=== PATIENT | male | born 1960 | race African-American/Black ===

== ENCOUNTER 2017-06-26 21:27 | Inpatient (IN) | payer OTHER ==
[~2017-06-26] VITALS: Ht 190.5 cm; Wt 83.9 kg
--- NOTE | 2017-06-26 21:31 | ED AMS/SEIZURE/WEAK/DIZZY ---
History of Present Illness General Chief Complaint: Seizure Stated Complaint: BIBA S/P SEIZURE Source: patient, EMS, friend Exam Limitations: no limitations Vital Signs & Intake/Output Vital Signs & Intake/Output Vital Signs Date Time Temp Pulse Resp B/P B/P Pulse O2 O2 Flow FiO2 Mean Ox Delivery Rate 06/26 2312 98.0 79 18 117/69 97 Room Air 06/26 2135 99.0 104 20 118/52 95 Room Air ED Intake and Output 06/27 0000 06/26 1200 Intake Total Output Total 400 Balance -400 Output, Urine 400 Patient 190 lb Weight Weight Reported by Patient Measurement Method Allergies Coded Allergies: No Known Allergies (06/26/17) Triage Nurses Notes Reviewed? yes Onset: Abrupt Duration: minute(s):, better Timing: single episode today Injury Environment: friend's home Severity: moderate Modifying Factors: Improves With: rest. Associated Symptoms: seizure like activity per friend HPI: 56 yo gentleman h/o seizure disorder (3 prior seizures), was on a seizure medication which he is no longer taking. Per his friend, "I heard a loud crash and he was leaned over on the coffee table and seizing.... His arms and legs were shaking... it lasted maybe 5 minutes or so." Mr. David shares that he bit his tongue, did not lose bowel or bladder. He states that he does not remember the incident. Per the medics, "He seemed post-ictal at first... He was pretty sluggish at first, but woke up in the ambulance." glucose 83 in the field. He reports that he is otherwise well, denies drugs/alcohol use tonight. Past History Travel History Traveled to [place] past 21 day No Medical History Any Pertinent Medical History? see below for history Neurological: seizure Cardiovascular: "old heart attack" Surgical History Surgical History: none Family History Hx Contributory? No Review of Systems Review of Systems Constitutional: Reports: no symptoms. EENTM: Reports: no symptoms. Respiratory: Reports: no symptoms. Cardiovascular: Reports: no symptoms. GI: Reports: no symptoms. Genitourinary: Reports: no symptoms. Musculoskeletal: Reports: no symptoms. Skin: Reports: no symptoms. Neurological/Psychological: Reports: no symptoms. Hematologic/Endocrine: Reports: no symptoms. Immunologic/Allergic: Reports: no symptoms. All Other Systems: Reviewed and Negative Physical Exam Physical Exam General Appearance: well developed/nourished, mild distress Head: atraumatic, normal appearance Eyes: Bilateral: normal appearance, PERRL, EOMI, other (pinpoint pupils bilaterally). Ears, Nose, Throat: normal pharynx, hearing grossly normal, abrasion on left distal tongue, no pia laceration Neck: normal inspection, supple, full range of motion Respiratory: normal breath sounds, chest non-tender, no respiratory distress, quiet respiration, lungs clear Cardiovascular: regular rate/rhythm Gastrointestinal: normal bowel sounds, soft, non-tender, no organomegaly Back: normal inspection, normal range of motion Extremities: normal range of motion Neurologic/Psych: no motor/sensory deficits, awake, alert, oriented x 3 Skin: intact, normal color, warm/dry Core Measures ACS in differential dx? No CVA/TIA Diagnosis No Sepsis Present: No Sepsis Focused Exam Completed? No Progress Differential Diagnosis: alcohol intoxication, CVA/stroke, dehydration, electrolyte imbalance, hypoglycemia, intracranial Hem., intracranial mass/tumor Plan of Care: Orders Procedure Date/time Status Nothing by Mouth 06/27 B Active TROPONIN LEVEL 06/27 0030 Active EKG 06/27 0030 Active Saline Lock 06/26 2359 Active Misc Message 06/26 2359 Active ED Holding Orders 06/26 2359 Active Admit to inpatient 06/26 2359 Active Vital Signs 06/26 2359 Active Code Status 06/26 2359 Active EKG 06/26 2317 Active PROLACTIN 06/26 2147 Complete URINE DRUG SCREEN FOR ER ONLY 06/26 2129 Complete URINALYSIS 06/26 2129 Complete TROPONIN LEVEL 06/26 2129 Complete LIPASE 06/26 2130 Complete HEPATIC FUNCTION PANEL 06/26 2130 Complete ETHANOL 06/26 2129 Complete CBC WITHOUT DIFFERENTIAL 06/26 2129 Complete BASIC METABOLIC PANEL 06/26 213 Complete AMYLASE 06/26 2130 Complete EKG 06/26 213 Active Current Medications Sig/Kathe Start time Last Medication Dose Stop Time Status Admin Carbamazepine 200 MG BID 06/26 2347 UNVr 06/26 (Tegretol) 235 Aspirin 325 MG ONCE ONE 06/265 UNVr 06/26 (Aspirin) 06/26 2346 2356 Laboratory Tests 06/26/17 2255: Urine Opiates Screen < 100.00, Methadone Screen < 40, Barbiturate Screen < 60, Ur Phencyclidine Scrn < 6.00, Amphetamines Screen < 100, U Benzodiazepines Scrn < 85, Urine Cocaine Screen < 50, Urine Cannabis Screen < 5.00, Urine Color YEL, Urine Clarity CLEAR, Urine pH 6.5, Ur Specific [place] 1.025, Urine Protein 30 H, Urine Ketones TRACE H, Urine Nitrite NEG, Urine Bilirubin NEG, Urine Urobilinogen 0.2, Ur Leukocyte Esterase NEG, Ur Microscopic SEDIMENT EXAMINED, Urine RBC RARE, Urine WBC RARE, Ur Epithelial Cells RARE, Urine Mucus RARE, Urine Hemoglobin NEG, Urine Glucose NEG 06/26/172146: Anion Gap 19 H, Estimated GFR > 60, BUN/Creatinine Ratio 17.8, Glucose 112 H, Calcium 9.1, Total Bilirubin 0.2, Direct Bilirubin 0.1, AST 20, ALT 18 L, Alkaline Phosphatase 131 H, Troponin I < 0.01, Total Protein 7.1, Albumin 3.9, Amylase 74, Lipase 82, Prolactin 63.4 H, Serum Alcohol < 10.0 06/26/172132: Prolactin Cancelled 06/26/172113: CBC w Diff NO MAN DIFF REQ, RBC 5.46, MCV 89.6, MCH 29.0, MCHC 32.4 L, RDW 14.2 , MPV 8.2, Gran % 62.1, Lymphocytes % 27.1, Monocytes % 7.7, Eosinophils % 2.6, Basophils % 0.5, Absolute Granulocytes 5.0, Absolute Lymphocytes 2.2, Absolute Monocytes 0.6, Absolute Eosinophils 0.2, Absolute Basophils 0 Diagnostic Imaging: Viewed by Me: Radiology Read, CT Scan. Discussed w/RAD: Radiology Read, CT Scan. Radiology Impression: PATIENT: MICHEL DAVID PRESENT AGE: 56 PATIENT ACCOUNT NO: [id number] : 62 LOCATION: [facility] ORDERING PHYSICIAN: Hawk Sanches MD SERVICE DATE: 06/26/17 EXAM TYPE: CAT - CT CERV SPINE WO IV CONTRAST; CT HEAD WO IV CONTRAST EXAMINATION: CT HEAD W/O IV CONTRAST CT CERVICAL SPINE W/O IV CONTRAST CLINICAL INFORMATION: 56-year- old male with history of trauma and seizure. COMPARISON: None TECHNIQUE: Head - Contiguous axial imaging of the head was performed from the skull base to the vertex without the administration of intravenous contrast, and axial images are reconstructed at 0.625 mm, 2.5 mm and 5 mm slice thickness. Cervical spine - A volumetric, helical CT acquisition of the cervical spine was obtained without contrast; in addition to the standard set of axial images, multiplanar reformatted images were provided in the coronal and sagittal imaging planes. 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 No evidence of an acute major vascular territory infarction, hemorrhage, extra-axial fluid collection, mass or midline shift. The lateral, third and fourth ventricles are normal; no hydrocephalus. The calvarium is intact and the mastoid air cells and middle ear cavities are well aerated. Small mucous retention cyst is present within the left sphenoid sinus. The visualized orbits, globes and temporomandibular joints are unremarkable. CERVICAL SPINE: The occipital condyles, atlas, axis and atlantoaxial articulation are intact. The vertebral body heights and alignment are maintained. No acute fractures in the anterior or posterior elements. No prevertebral soft tissue swelling. Mild disc space narrowing with traction osteophyte formation at C4-C5 and C5-C6. Mild hypertrophy of the uncovertebral joints of C3-C4, C4-C5 and C5-C6. No significant narrowing of the central spinal canal or neural foramina. No evidence of epidural hematoma or focal fluid collection in the visualized neck. Thyroid gland is unremarkable. Severe bullous emphysema in the partially visualized lung apices. IMPRESSION: 1. No acute intracranial pathology. 2. 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 3. No acute fracture or malalignment within the mildly degenerated cervical spine. 4. Severe bullous emphysema in the partially visualized lung apices. DICTATED BY: Alcides Parker MD DATE/TIME DICTATED:06/26/172227 AUTO PARKER:BENITO DATE/TIME TRANSCRIBED:06/26/172227 CONFIDENTIAL, DO NOT COPY WITHOUT APPROPRIATE AUTHORIZATION. <Electronically signed in Other Vendor System> SIGNED BY: Alcides Parker MD 06/26/17 9923 Initial ED EKG: RBBB, non specific st segment changes v4, v5 Repeat EKG: unchanged Departure Departure Disposition: STILL A PATIENT Condition: Stable Clinical Impression Primary Impression: Seizure disorder Secondary Impressions: Abnormal EKG Departure Forms: Customer Survey General Discharge Information Comments 06/26/17, 23:41... discussed with dr. soto (cards) who reviewed the patient' s ekg... pt with abnormal ekg, pt is asymptomatic, no chest pain... pt merits observation, serial ekg's, trops, he will evaluate in the AM. 06/26/17, 23:48... discussed with dr. partida (neurology)... pt likely was on carbamazepine... will restart med 200mg bid. dr. partida will see pt in am. Admission Note Spoke With: Ric SY,[facility] Documentation of Exam: Documentation of any treatments & extenuating circumstances including Concerns Regarding Discharge (functional status, medication knowledge or non-compliance, living conditions, etc.) that warrant an admission rather than observation: pt with seizure, likely due to stopping his medications, also with abnormal ekg. pt merits aspirin, monitoring, tegretol... cards and neuro will eval in the morning. Critical Care Note Critical Care Note Critical Care Time: 30-74 min
[2017-06-26 21:59] LABS: ABSOLUTE BASOPHIL COUNT 0 /CUMM (0.0-0.2); ABSOLUTE EOSINOPHIL COUNT 0.2 /CUMM (0.0-0.7); ABSOLUTE LYMPH COUNT 2.2 /CUMM (1.2-3.4); ABSOLUTE MONOCYTE COUNT 0.6 /CUMM (0.10-0.60); BASOPHIL % 0.5 % (0.0-2.0); EOSINOPHIL % 2.6 % (0-5); GRANULOCYTE % 62.1 % (42.2-75.2); HEMATOCRIT 48.9 % (42-52); MEAN CORPUSCULAR HGB CONC 32.4 G/DL (33.0-37.0); MEAN CORPUSCULAR VOLUME 89.6 FL (80.0-94.0); MEAN PLATELET VOLUME 8.2 FL (7.4-10.4); PLATELET COUNT 228 /CUMM (130-400); RBC DISTRIBUTION WIDTH 14.2 % (11.5-14.5); RED BLOOD CELL CT 5.46 /CUMM (4.70-6.10); WHITE BLOOD CELL COUNT 8.1 /CUMM (4.8-10.8)
--- NOTE | 2017-06-26 22:41 | CT SCAN REPORT ---
EXAMINATION: CT HEAD W/O IV CONTRAST CT CERVICAL SPINE W/O IV CONTRAST CLINICAL INFORMATION: 56-year-old male with history of trauma and seizure. COMPARISON: None TECHNIQUE: Head - Contiguous axial imaging of the head was performed from the skull base to the vertex without the administration of intravenous contrast, and axial images are reconstructed at 0.625 mm, 2.5 mm and 5 mm slice thickness. Cervical spine - A volumetric, helical CT acquisition of the cervical spine was obtained without contrast; in addition to the standard set of axial images, multiplanar reformatted images were provided in the coronal and sagittal imaging planes. 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 No evidence of an acute major vascular territory infarction, hemorrhage, extra-axial fluid collection, mass or midline shift. The lateral, third and fourth ventricles are normal; no hydrocephalus. The calvarium is intact and the mastoid air cells and middle ear cavities are well aerated. Small mucous retention cyst is present within the left sphenoid sinus. The visualized orbits, globes and temporomandibular joints are unremarkable. CERVICAL SPINE: The occipital condyles, atlas, axis and atlantoaxial articulation are intact. The vertebral body heights and alignment are maintained. No acute fractures in the anterior or posterior elements. No prevertebral soft tissue swelling. Mild disc space narrowing with traction osteophyte formation at C4-C5 and C5-C6. Mild hypertrophy of the uncovertebral joints of C3-C4, C4-C5 and C5-C6. No significant narrowing of the central spinal canal or neural foramina. No evidence of epidural hematoma or focal fluid collection in the visualized neck. Thyroid gland is unremarkable. Severe bullous emphysema in the partially visualized lung apices. IMPRESSION: 1. No acute intracranial pathology. 2. 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 3. No acute fracture or malalignment within the mildly degenerated cervical spine. 4. Severe bullous emphysema in the partially visualized lung apices.
--- NOTE | 2017-06-26 22:49 | RADIOLOGY REPORT ---
EXAMINATION: XR PORTABLE CHEST CLINICAL INFORMATION: Dyspnea. Seizure. COMPARISON: None TECHNIQUE: Portable frontal view of the chest was obtained. FINDINGS: Severe bullous emphysema of the lung apices without pneumothorax. Mild cardiomegaly. No pulmonary edema or pleural effusion. The visualized bones are intact. IMPRESSION: 1. No pneumonia; no acute cardiopulmonary findings. 2. Severe bullous emphysema of the upper lobes. 3. Mild cardiomegaly.
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
--- NOTE | 2017-06-27 05:25 | Admission Certification ---
Admission Certification Certification Statement - As attending physician, I certify that at the time of - admission, based on clinical presentation, severity of - symptoms, need for further diagnostic testing and - therapeutic interventions, and risk of adverse outcomes - without in-hospital treatment, in my clinical assessment, - this patient requires an acute hospital stay for a minimum - of two nights or longer. I have also considered psychsocial - factors such as support system, advanced age, financial - issues, cognitive issues, and failed out-patient treatments, - past re-admission history, safety of patient, and lack of - compliance as applicable. Specific rationale supporting this admission is: Breakthrough seizures from medication noncompliance, EKG changes needs inpatient Telemetry monitoring to rule out ACS.
--- NOTE | 2017-06-27 10:15 | Event Note ---
Event Note Event Note: Patient last filled his prescriptions on 04/06/17: from [address] [place] [address], . * carvedilol 3.125 mg BID * valsartan 80 mg HS * warfarin 2.5 mg daily * carbamazepine ER 200 mg BID * ASA 81 mg daily Allergy: None noted Today's fatumaamjett: 56 yo M with pmh of ischemic cardiomyopathy/dilated cardiomyopathy with EF 10-15 % (01/2017), with left ventricular thrombus, coronary artery disease proven by cardiac catheterization showing LAD 90% stenosis of 22 mm length, large anterior IL, pulmonary hypertension, left atrial dilatation, and seizure disorder, noncompliant with medications, who lives in [place], was at his friend's home yesterday, when he sustained an unwitnessed seizure. Given his cardiac history and history of seizure disorder, difficult at this point of time to say his seizure was due to seizure disorder non compliance to meds or due to hypoxia secondary to his cardiac condition. Although his ejection fraction is extremely low, he does not appear to be in any decompensated heart failure as of now. Overnight, he did not have any changes in telemetry, did not have any further seizures, and today EEG came back negative, echocardiogram pending, will follow cardiology in neurology's suggestions which have been requested. Of note, he tried leaving AGAINST MEDICAL ADVICE, earlier coating he needs to have a cigarette while refusing any substitute, but later stated to complete the EEG and consultations. His medications have been reconciled from his [facility], [place], and if he decides to leave AGAINST MEDICAL ADVICE, prescriptions for now have been sent to [facility].
--- NOTE | 2017-06-27 12:04 | Cons- Cardiology ---
General Information and HPI Consulting Request Date of Consult: 06/27/17 Requested By: Sharonda Mills MD Reason for Consult: Cardiomyopathy, possible syncope History of Present Illness: The patient is a 56-year-old male with history of coronary artery disease, ischemic heart myopathy, left ventricular thrombus, transient episode of atrial fibrillation, and seizure disorder. He previously lived in [place], however he recently has been staying with friends in [place]. He lost his wallet and has been unable to obtain his medications for the past month. He has been off all medications including his cardiac medications and seizure medications for the past few months. He was brought in by friends after a witnessed seizure episode. The patient does not recall anything about the episode. He was feeling well, and then he awoke in the ambulance. He has no chest pain. No palpitations. No shortness of breath. No diaphoresis. No lightheadedness or dizziness. No nausea or vomiting. Allergies/Medications Allergies: Coded Allergies: No Known Allergies (06/26/17) Home Med List: Aspirin (Aspirin*) 81 MG TAB.CHEW 1 TAB PO DAILY HEART HEALTH Carbamazepine (Tegretol XR) 200 MG TAB.ER.12H 1 TAB PO BID SEIZURE Carvedilol 3.125 MG TABLET 1 TAB PO BID HTN Folic Acid 1 MG TABLET 1 MG PO DAILY SUPPLEMENT Multivitamin (One Daily Multivitamin) 1 EACH TABLET 1 TAB PO DAILY SUPPLEMENT Thiamine HCl (Vitamin B-1) 100 MG TABLET 100 MG PO DAILY SUPPLEMENT Valsartan 80 MG TABLET 1 TAB PO DAILY HTN Warfarin Sodium (Coumadin) 2.5 MG TABLET 1 TAB PO DAILY BLOOD THINNER Current Medications: Current Medications Sig/Kathe Start time Last Medication Dose Route Stop Time Status Admin Acetaminophen 650 MG Q6P PRN 06/27 0145 DCD PO Acetaminophen 1,000 MG Q6P PRN 06/27 0145 DCD IV Aspirin 81 MG DAILY 06/27 1000 DCD 06/27 PO 1040 Aspirin 0 .STK-MED ONE 06/26 2352 DC PO Aspirin 325 MG ONCE ONE 06/265 DC 06/26 PO 06/26 234 2356 Atorvastatin Calcium 40 MG 1700 06/27 1700 DCD 06/27 PO 1717 Carbamazepine 200 MG BID 06/27 1000 DCD 06/27 PO 1041 Carbamazepine 200 MG BID 06/26 2347 DC 06/26 PO 2356 Enoxaparin Sodium 40 MG DAILY 06/27 1000 DCD 06/27 SC 1040 Folic Acid 1 MG DAILY 06/27 1000 DCD 06/27 PO 1040 Ibuprofen 600 MG Q6P PRN 06/27 0145 DC PO Metoprolol Tartrate 6.25 MG BID 06/27 1000 DCD 06/27 PO 1040 Multivitamins 1 TAB DAILY 06/27 1000 DCD 06/27 PO 1041 Nicotine 7 MG Q24 PRN 06/27 0200 DCD TOP Thiamine HCl 100 MG DAILY 06/27 1000 DCD 06/27 PO 1041 Warfarin Sodium 5 MG COUMADIN 1700 ONE 06/27 1815 DC PO 06/27 1816 Review of Systems Review of Systems: No rash. No tremor. No melena. All other systems were reviewed, and were noted to be negative. 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 Home Services at Home: None Smoking Status: Current Everyday Smoker (PPD x 45 yrs ) ETOH Use: occasional use Illicit Drug Use: denies illicit drug use Functional Ability ADLs Independent: dressing, eating, toileting, bathing. Ambulation: independent IADLs Independent: shopping, housework, finances, food prep, telephone, transportation , medication admin. Exam & Diagnostic Data Vital Signs and I&O Vital Signs Date Time Temp Pulse Resp B/P B/P Pulse O2 O2 Flow FiO2 Mean Ox Delivery Rate 06/27 1555 97.8 74 20 128/85 94 Room Air 06/27 1040 66 104/70 06/27 0812 97.8 66 18 114/65 96 06/27 0724 97.9 64 18 99/64 96 Room Air 06/27 0608 97.9 57 16 104/63 96 Room Air 06/27 0431 97.4 78 18 101/56 97 Room Air 06/27 0149 97.9 75 18 105/69 96 Room Air 06/26 2312 98.0 79 18 117/69 97 Room Air 06/26 2135 99.0 104 20 118/52 95 Room Air Intake & Output 06/27 1600 06/27 0800 06/27 0000 06/26 1600 06/26 0800 06/26 0000 Intake Total 510 Output Total 400 Balance 510 -400 Intake, IV 10 Intake, Oral 500 Output, Urine 400 Patient 185 lb 190 lb Weight Weight Reported by Patient Reported by Patient Measurement Method Physical Exam: Gen: The patient is in no acute distress HEENT: Normal nose, ears, and oropharynx. Pupils equal bilaterally. Conjunctiva normal. Neck: Supple with no JVD, no masses, and no thyromegaly Lungs: Clear to auscultation with normal respiratory effort Heart: RRR, S1, S2, 1/6 systolic murmur. No peripheral edema, 2+ pulses in the lower extremities bilaterally Abdomen: Soft, nontender, no masses. No hepatomegaly. No splenomegaly Extremities: No clubbing or cyanosis. Normal muscle strength in the upper and lower extremities Skin: Normal skin turgor with no skin ulcers or lesions noted. Neuro: Cranial nerves intact. Sensation intact Psych: Alert and oriented x 3 with appropriate affect Labs/Marvin Results: Laboratory Tests 06/27 06/27 06/27 06/27 06/27 1710 1122 0917 0557 0031 Chemistry Lactic Acid (0.7 - 2.1 mmol/L) Cancelled 0.9 Troponin I (<0.11 ng/ml) 0.04 0.02 Coagulation PT (9.4 - 12.5 SEC) 13.2 H INR (0.90 - 1.17) 1.26 H 06/26 06/26 06/26 2255 2147 2133 Chemistry Sodium (137 - 145 mmol/L) 144 Potassium (3.5 - 5.1 mmol/L) 4.2 Chloride (98 - 107 mmol/L) 108 H Carbon Dioxide (22 - 30 mmol/L) 17 L Anion Gap (5 - 16) 19 H BUN (9 - 20 mg/dL) 16 Creatinine (0.7 - 1.2 mg/dL) 0.9 Estimated GFR (>60 ml/min) > 60 BUN/Creatinine Ratio (7 - 25 %) 17.8 Glucose (65 - 99 mg/dL) 112 H Lactic Acid (0.7 - 2.1 mmol/L) 7.9 H Calcium (8.4 - 10.2 mg/dL) 9.1 Total Bilirubin (0.2 - 1.3 mg/dL) 0.2 Direct Bilirubin (< 0.4 mg/dL) 0.1 AST (17 - 59 U/L) 20 ALT (21 - 72 U/L) 18 L Alkaline Phosphatase (< 127 U/L) 131 H Troponin I (<0.11 ng/ml) < 0.01 Total Protein (6.3 - 8.2 g/dL) 7.1 Albumin (3.5 - 5.0 g/dL) 3.9 Amylase (30 - 110 U/L) 74 Lipase (23 - 300 U/L) 82 Prolactin (3.7 - 17.9 ng/mL) 63.4 H Cancelled Toxicology Urine Opiates Screen (>2000 NG/ML) < 100.00 Methadone Screen (>300 NG/ML) < 40 Barbiturate Screen (>200 NG/ML) < 60 Ur Phencyclidine Scrn (>25 NG/ML) < 6.00 Amphetamines Screen (>1000 NG/ML) < 100 U Benzodiazepines Scrn (>200 NG/ML) < 85 Urine Cocaine Screen (>300 NG/ML) < 50 Urine Cannabis Screen (>50 NG/ML) < 5.00 Serum Alcohol (<10 MG/DL) < 10.0 Urines Urine Color (YEL,AMB,STR) YEL Urine Clarity (CLEAR) CLEAR Urine pH (5.0 - 8.0) 6.5 Ur Specific [place] (1.001 - 1.035) 1.025 Urine Protein (NEG,<30 MG/DL) 30 H Urine Ketones (NEG) TRACE H Urine Nitrite (NEG) NEG Urine Bilirubin (NEG) NEG Urine Urobilinogen (0.1 - 1.0 EU/dl) 0.2 Ur Leukocyte Esterase (NEG) NEG Ur Microscopic SEDIMENT EXAMINED Urine RBC (0 - 5 /HPF) RARE Urine WBC (0 - 2 /HPF) RARE Ur Epithelial Cells (NONE,FEW) RARE Urine Mucus (FEW,NONE) RARE Urine Hemoglobin (NEG) NEG Urine Glucose (N MG/DL) NEG 06/26 2113 Hematology CBC w Diff NO MAN DIFF REQ WBC (4.8 - 10.8 /CUMM) 8.1 RBC (4.70 - 6.10 /CUMM) 5.46 Hgb (14.0 - 18.0 G/DL) 15.9 Hct (42 - 52 %) 48.9 MCV (80.0 - 94.0 FL) 89.6 MCH (27.0 - 31.0 PG) 29.0 MCHC (33.0 - 37.0 G/DL) 32.4 L RDW (11.5 - 14.5 %) 14.2 Plt Count (130 - 400 /CUMM) 228 MPV (7.4 - 10.4 FL) 8.2 Gran % (42.2 - 75.2 %) 62.1 Lymphocytes % (20.5 - 51.1 %) 27.1 Monocytes % (1.7 - 9.3 %) 7.7 Eosinophils % (0 - 5 %) 2.6 Basophils % (0.0 - 2.0 %) 0.5 Absolute Granulocytes (1.4 - 6.5 /CUMM) 5.0 Absolute Lymphocytes (1.2 - 3.4 /CUMM) 2.2 Absolute Monocytes (0.10 - 0.60 /CUMM) 0.6 Absolute Eosinophils (0.0 - 0.7 /CUMM) 0.2 Absolute Basophils (0.0 - 0.2 /CUMM) 0 Diagnostic Data EKG Results EKG tracing is independently reviewed, and reveals normal sinus rhythm at 69, right bundle branch block, anterior infarct age and CXR Results Family history was reviewed with the patient Assessment/Plan Assessment/Plan The patient is a 56-year-old male with history of coronary artery disease, ischemic heart myopathy, LVEF 10-15%, left ventricular thrombus, prior history of atrial fibrillation, and seizure disorder. He is admitted after an apparent seizure, and he is found to have been off of his medications. I recommended further monitoring in the hospital because of concern that the presenting episode could have been syncope secondary to cardiac disease. I recommended an echocardiogram, reinitiation of cardiac medications, and close follow-up. The patient unfortunately signed out AGAINST MEDICAL ADVICE before workup could be completed. Consult Acknowledgment - Thank you for your consult request.
--- NOTE | 2017-06-27 15:34 | ELECTROENCEPHALOGRAM REPORT ---
Electroencephalogram Report Electroencephalogram Results Date of service: 06/27/17 Attending MD: Sharonda Mills MD Service Center Representative: Tamia Aparicio EEG Number: [id number] Test Utilizes: 10-20 system, 21 lead 18 channel digital recording Pertinent Hx/Physical/Neuro Findings/Clin Diagnosis: Fourth seizure Inpatient Medications: Current Medications Sig/Kathe Start time Last Medication Dose Route Stop Time Status Admin Acetaminophen 650 MG Q6P PRN 06/27 0145 AC PO Acetaminophen 1,000 MG Q6P PRN 06/27 0145 AC IV Aspirin 81 MG DAILY 06/27 1000 AC 06/27 PO 1040 Aspirin 0 .STK-MED ONE 06/26 2353 DC PO Aspirin 325 MG ONCE ONE 06/26 2345 DC 06/26 PO 06/26 2346 2356 Atorvastatin Calcium 40 MG 1700 06/27 1700 AC PO Carbamazepine 200 MG BID 06/27 1000 AC 06/27 PO 1041 Carbamazepine 200 MG BID 06/26 2347 DC 06/26 PO 2356 Enoxaparin Sodium 40 MG DAILY 06/27 1000 AC 06/27 SC 1040 Folic Acid 1 MG DAILY 06/27 1000 AC 06/27 PO 1040 Ibuprofen 600 MG Q6P PRN 06/27 0145 DC PO Metoprolol Tartrate 6.25 MG BID 06/27 1000 AC 06/27 PO 1040 Multivitamins 1 TAB DAILY 06/27 1000 AC 06/27 PO 1041 Nicotine 7 MG Q24 PRN 06/27 0200 AC TOP Thiamine HCl 100 MG DAILY 06/27 1000 AC 06/27 PO 1041 Interpretation: The background reveals a posterior 9 Hz alpha mixed with low amplitude frontally dominant beta. Occasional muscle artifact is present but there are no focal, lateralized or epileptiform abnormalities. Hyperventilation was deferred due to a cardiac history, photic stimulaton was normal. Impression: Normal
--- NOTE | 2017-06-27 15:45 | Cons- Neurology ---
General Information and HPI Consulting Request Date of Consult: 06/27/17 Requested By: Lina SY,Sharonda Reason for Consult: Seizure Source of Information: patient, old records, resident [facility] Exam Limitations: no limitations History of Present Illness: 56 year old man suffered a witnessed seizure with tongue biting while sleeping. yesterday jose. He gives a history after a minor head injury. After a second seizure treatment was started, he believes with Tegretol, unclear if dose was adjusted after the third but ran out of meds unable to pay a few months ago. No family hx of epilepsy. No injury reported. Known cardiac disease with low EF and ventricular thrombus on prior eval in [place], anticoagulated but also off med., Allergies/Medications Allergies: Coded Allergies: No Known Allergies (06/26/17) Home Med List: No Known Home Medications Current Medications: Current Medications Sig/Kathe Start time Last Medication Dose Route Stop Time Status Admin Acetaminophen 650 MG Q6P PRN 06/27 0145 AC PO Acetaminophen 1,000 MG Q6P PRN 06/27 0145 AC IV Aspirin 81 MG DAILY 06/27 1000 AC 06/27 PO 1040 Aspirin 0 .STK-MED ONE 06/26 2353 DC PO Aspirin 325 MG ONCE ONE 06/26 2345 DC 06/26 PO 06/26 2346 2356 Atorvastatin Calcium 40 MG 1700 06/27 1700 AC PO Carbamazepine 200 MG BID 06/27 1000 AC 06/27 PO 1041 Carbamazepine 200 MG BID 06/26 2347 DC 06/26 PO 2356 Enoxaparin Sodium 40 MG DAILY 06/27 1000 AC 06/27 SC 1040 Folic Acid 1 MG DAILY 06/27 1000 AC 06/27 PO 1040 Ibuprofen 600 MG Q6P PRN 06/27 0145 DC PO Metoprolol Tartrate 6.25 MG BID 06/27 1000 AC 06/27 PO 1040 Multivitamins 1 TAB DAILY 06/27 1000 AC 06/27 PO 1041 Nicotine 7 MG Q24 PRN 06/27 0200 AC TOP Thiamine HCl 100 MG DAILY 06/27 1000 AC 06/27 PO 1041 Review of Systems Review of Systems: ROS: A complete medical systems review was obtained. No pertinent complaints were found. 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 Home Services at Home: None Smoking Status: Current Everyday Smoker (PPD x 45 yrs ) ETOH Use: occasional use Illicit Drug Use: denies illicit drug use Functional Ability ADLs Independent: dressing, eating, toileting, bathing. Ambulation: independent IADLs Independent: shopping, housework, finances, food prep, telephone, transportation , medication admin. Exam & Diagnostic Data Vital Signs and I&O Vital Signs Date Time Temp Pulse Resp B/P B/P Pulse O2 O2 Flow FiO2 Mean Ox Delivery Rate 06/27 1040 66 104/70 06/27 0812 97.8 66 18 114/65 96 06/27 0724 97.9 64 18 99/64 96 Room Air 06/27 0608 97.9 57 16 104/63 96 Room Air 06/27 0431 97.4 78 18 101/56 97 Room Air 06/27 0149 97.9 75 18 105/69 96 Room Air 06/26 2312 98.0 79 18 117/69 97 Room Air 06/26 2135 99.0 104 20 118/52 95 Room Air Intake & Output 06/27 1600 06/27 0800 06/27 0000 Intake Total 510 Output Total 400 Balance 510 -400 Intake, IV 10 Intake, Oral 500 Output, Urine 400 Patient 185 lb 190 lb Weight Weight Reported by Patient Reported by Patient Measurement Method Physical Exam: On exam the patient appeared generally well and in no distress. Mental status: Alert, attentive, fully oriented, no language errors, recall and general fund of knowledge seem intact Funduscopic unremarkable Visual mccallum full , Eye movements full without nystagmus, pupils midsize equal round and reactive to light. Facial movement and sensation normal bilaterally Uvula elevates midline Tongue protrusion is midline Shoulder movement full,painless Motor power and tone normal in all 4 extremities Sensation intact to primary modes Tendon reflexes normal and symmetric without pathologic signs Coordination no ataxia Gait [testing deferred][normal] Last 48 Hours of Lab Results: Laboratory Tests 06/27 06/27 06/27 06/27 1122 0917 0557 0031 Chemistry Lactic Acid (0.7 - 2.1 mmol/L) Cancelled 0.9 Troponin I (<0.11 ng/ml) 0.04 0.02 06/26 06/26 06/26 2255 2147 2133 Chemistry Sodium (137 - 145 mmol/L) 144 Potassium (3.5 - 5.1 mmol/L) 4.2 Chloride (98 - 107 mmol/L) 108 H Carbon Dioxide (22 - 30 mmol/L) 17 L Anion Gap (5 - 16) 19 H BUN (9 - 20 mg/dL) 16 Creatinine (0.7 - 1.2 mg/dL) 0.9 Estimated GFR (>60 ml/min) > 60 BUN/Creatinine Ratio (7 - 25 %) 17.8 Glucose (65 - 99 mg/dL) 112 H Lactic Acid (0.7 - 2.1 mmol/L) 7.9 H Calcium (8.4 - 10.2 mg/dL) 9.1 Total Bilirubin (0.2 - 1.3 mg/dL) 0.2 Direct Bilirubin (< 0.4 mg/dL) 0.1 AST (17 - 59 U/L) 20 ALT (21 - 72 U/L) 18 L Alkaline Phosphatase (< 127 U/L) 131 H Troponin I (<0.11 ng/ml) < 0.01 Total Protein (6.3 - 8.2 g/dL) 7.1 Albumin (3.5 - 5.0 g/dL) 3.9 Amylase (30 - 110 U/L) 74 Lipase (23 - 300 U/L) 82 Prolactin (3.7 - 17.9 ng/mL) 63.4 H Cancelled Toxicology Urine Opiates Screen (>2000 NG/ML) < 100.00 Methadone Screen (>300 NG/ML) < 40 Barbiturate Screen (>200 NG/ML) < 60 Ur Phencyclidine Scrn (>25 NG/ML) < 6.00 Amphetamines Screen (>1000 NG/ML) < 100 U Benzodiazepines Scrn (>200 NG/ML) < 85 Urine Cocaine Screen (>300 NG/ML) < 50 Urine Cannabis Screen (>50 NG/ML) < 5.00 Serum Alcohol (<10 MG/DL) < 10.0 Urines Urine Color (YEL,AMB,STR) YEL Urine Clarity (CLEAR) CLEAR Urine pH (5.0 - 8.0) 6.5 Ur Specific [place] (1.001 - 1.035) 1.025 Urine Protein (NEG,<30 MG/DL) 30 H Urine Ketones (NEG) TRACE H Urine Nitrite (NEG) NEG Urine Bilirubin (NEG) NEG Urine Urobilinogen (0.1 - 1.0 EU/dl) 0.2 Ur Leukocyte Esterase (NEG) NEG Ur Microscopic SEDIMENT EXAMINED Urine RBC (0 - 5 /HPF) RARE Urine WBC (0 - 2 /HPF) RARE Ur Epithelial Cells (NONE,FEW) RARE Urine Mucus (FEW,NONE) RARE Urine Hemoglobin (NEG) NEG Urine Glucose (N MG/DL) NEG 06/26 2113 Hematology CBC w Diff NO MAN DIFF REQ WBC (4.8 - 10.8 /CUMM) 8.1 RBC (4.70 - 6.10 /CUMM) 5.46 Hgb (14.0 - 18.0 G/DL) 15.9 Hct (42 - 52 %) 48.9 MCV (80.0 - 94.0 FL) 89.6 MCH (27.0 - 31.0 PG) 29.0 MCHC (33.0 - 37.0 G/DL) 32.4 L RDW (11.5 - 14.5 %) 14.2 Plt Count (130 - 400 /CUMM) 228 MPV (7.4 - 10.4 FL) 8.2 Gran % (42.2 - 75.2 %) 62.1 Lymphocytes % (20.5 - 51.1 %) 27.1 Monocytes % (1.7 - 9.3 %) 7.7 Eosinophils % (0 - 5 %) 2.6 Basophils % (0.0 - 2.0 %) 0.5 Absolute Granulocytes (1.4 - 6.5 /CUMM) 5.0 Absolute Lymphocytes (1.2 - 3.4 /CUMM) 2.2 Absolute Monocytes (0.10 - 0.60 /CUMM) 0.6 Absolute Eosinophils (0.0 - 0.7 /CUMM) 0.2 Absolute Basophils (0.0 - 0.2 /CUMM) 0 Imaging/Other Studies: CT scan head: there is encephalomalacia of the right temporal lobe, laterally, from remote infarction of the right MCA inferior division territory. No evidence of an acute major vascular territory infarction, hemorrhage, extra-axial fluid collection, mass or midline shift. The lateral, third and fourth ventricles are normal; no hydrocephalus. The calvarium is intact and the mastoid air cells and middle ear cavities are well aerated. Small mucous retention cyst is present within the left sphenoid sinus. The visualized orbits, globes and temporomandibular joints are unremarkable. Assessment/Plan Assessment: seizure disorder, post stroke or post traumatic breakthrough due to non compliance tegretol resumed S/P CVA, presumably cardioembolic Recommendations: continue CBZ level in 10 days cardiac evaluation Consult Acknowledgment - Thank you for your consult request.
--- NOTE | 2017-06-27 15:51 | PN- Att Addend ---
Attending Addendum Attending Brief Note Patient seen and examined. Records obtained from recent hospital reveals a history of schizophrenia, ischemic cardiomyopathy with ejection fraction of 10- 15%, coronary artery disease with 90% occlusion of the LAD, left ventricle thrombus, transient episode of atrial fibrillation and seizure disorder. He resides in [place] but has been staying with friends in [place]. He claims that he lost his wallet and has been unable to obtain his medications. He has been without his medications for the past few months including his antiseizure medications. He was brought in by friends after a witnessed seizure episode. Denies chest pain or shortness of breath. Denies palpitations. Denies cough. Denies headache. No events so far while on telemetry monitoring. HEENT: Anicteric, no pallor Heart: S1-S2 regular Lungs: Clear to auscultation bilaterally Abdomen: Soft, nontender normal bowel sounds Extremities: No pedal edema Skin: Intact with no rashes Neurologic: No gross focal neurologic deficit. Laboratory Tests 06/27/17 1122: Lactic Acid Cancelled 06/27/17 0917: Lactic Acid 0.9 06/27/17 0557: Troponin I 0.04 06/27/17 0031: Troponin I 0.02 06/26/17 2255: Urine Opiates Screen < 100.00, Methadone Screen < 40, Barbiturate Screen < 60, Ur Phencyclidine Scrn < 6.00, Amphetamines Screen < 100, U Benzodiazepines Scrn < 85, Urine Cocaine Screen < 50, Urine Cannabis Screen < 5.00, Urine Color YEL, Urine Clarity CLEAR, Urine pH 6.5, Ur Specific [place] 1.025, Urine Protein 30 H, Urine Ketones TRACE H, Urine Nitrite NEG, Urine Bilirubin NEG, Urine Urobilinogen 0.2, Ur Leukocyte Esterase NEG, Ur Microscopic SEDIMENT EXAMINED, Urine RBC RARE, Urine WBC RARE, Ur Epithelial Cells RARE, Urine Mucus RARE, Urine Hemoglobin NEG, Urine Glucose NEG 06/26/17 2147: Anion Gap 19 H, Estimated GFR > 60, BUN/Creatinine Ratio 17.8, Glucose 112 H, Lactic Acid 7.9 H, Calcium 9.1, Total Bilirubin 0.2, Direct Bilirubin 0.1, AST 20, ALT 18 L, Alkaline Phosphatase 131 H, Troponin I < 0.01, Total Protein 7.1 , Albumin 3.9, Amylase 74, Lipase 82, Prolactin 63.4 H, Serum Alcohol < 10.0 06/26/172132: Prolactin Cancelled 06/26/172113: CBC w Diff NO MAN DIFF REQ, RBC 5.46, MCV 89.6, MCH 29.0, MCHC 32.4 L, RDW 14.2 , MPV 8.2, Gran % 62.1, Lymphocytes % 27.1, Monocytes % 7.7, Eosinophils % 2.6, Basophils % 0.5, Absolute Granulocytes 5.0, Absolute Lymphocytes 2.2, Absolute Monocytes 0.6, Absolute Eosinophils 0.2, Absolute Basophils 0 Problems: 1. Seizure. 2. Chronic systolic heart failure with EF of 10-15%. 3. Schizophrenia Plan: -Patient's symptoms were likely secondary to seizure from non-compliance to medications. He has been restarted on carbamazepine. -His history of severe cardiomyopathy however also raises concern for possible decreased cerebral perfusion due to an arrhythmia. We will monitor patient overnight on telemetry. -He has no events overnight on telemetry monitoring he may be discharged home to follow-up with his care providers. -He was apparently started on Coumadin for his left ventricle thrombosed but does appear to be compliant. He did not mention this medication when initially questioned. Will check his INR. 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 -Patient is alert and oriented 3. He is conversing appropriately. We have explained clearly the rationale for monitoring in the hospital. He verbalized understanding. He wished to sign out AGAINST MEDICAL ADVICE but is willing to stay for now.
[2017-06-27 15:55] VITALS: BP 128/85
[2017-06-27] MEDS ORDERED: TEGRETOL XR200 M1 PO ×2 (16:03→17:27)
[2017-06-27] MEDS ORDERED: VALSARTAN80 M1 PO ×2 (16:03→17:27)
[2017-06-27] MEDS ORDERED: CARVEDILOL3.125 M1 PO ×3 (16:03→18:58)
[2017-06-27] MEDS ORDERED: ASPIRIN81 M4 PO ×2 (16:04→17:27)
[2017-06-27] MEDS ORDERED: COUMADIN2.5 M1 PO ×3 (16:04→18:58)
[2017-06-27] MEDS ORDERED: FOLIC ACID1 M1 PO ×3 (16:06→18:32)
[2017-06-27] MEDS ORDERED: ONE DAILY MULT1 EAC2 PO ×3 (16:06→18:32)
[2017-06-27] MEDS ORDERED: VITAMIN B-1100 MG PO ×3 (16:06→18:32)
--- NOTE | 2017-06-27 16:09 | Patient Discharge Instructions ---
Discharge Instructions General Discharge Information You were seen/treated for: Possible seizure (witnessed), likely 2/2 ventricular tachycardia (not recorded, but likely given his extensive cardiac history) Special Instructions: You are leaving AGAINST MEDICAL ADVICE. Please follow-up with your bag checker and neurologist even after you leave the hospital. Please follow-up with your primary care physician after you leave the hospital. Please return to hospital for worsening of symptoms, or if you have another episode of seizure. Diet Continue normal diet: Yes Recommended Diet: Heart Healthy Activity Full Activity/No Limits: No Activity Self Limited: Yes (has low EF, thus no exertion.) Acute Coronary Syndrome Inclusion Criteria At DC or during hospital stay patient has or had the following: ACS DIAGNOSIS No Discharge Core Measures Meds if any: Prescribed or Continued at Discharge Meds if any: NOT Prescribed or Continued at Discharge Congestive Heart Failure Inclusion Criteria At DC or during hospital stay patient has or had the following: CHF DIAGNOSIS Yes Discharge Core Measures Meds if any: Prescribed or Continued at Discharge RAFA/ARB for EF <40% Yes (valsartan) Meds if any: NOT Prescribed or Continued at Discharge Cerebrovascular accident Inclusion Criteria At DC or during hospital stay patient has or had the following: CVA/TIA Diagnosis No Discharge Core Measures Meds if any: Prescribed or Continued at Discharge Meds if any: NOT Prescribed or Continued at Discharge Venous thromboembolism Inclusion Criteria VTE Diagnosis No VTE Type NONE VTE Confirmed by (Test) NONE Discharge Core Measures - Per Current guidelines, there needs to be overlap - treatment for the first 5 days of Warfarin therapy. - If discharged on Warfarin prior to 5 days of - overlap therapy, the patient will need to be - assessed for post discharge needs including - *Post discharge parental anticoagulation - *Warfarin and/or parental anticoagulation education - *Follow up date to check INR post discharge At least 5 days overlap therapy as Inpatient No Meds if any: Prescribed or Continued at Discharge Note: Overlap Therapy is Warfarin and Anticoagulant Meds if any: NOT Prescribed or Continued at Discharge
[2017-06-27 17:29] LABS: PT 13.2 SEC (9.4-12.5)
--- NOTE | 2017-06-28 13:13 | Discharge Summary ---
Visit Information Visit Dates Admission Date: 06/26/17 Discharge Date: 06/27/17 Hospital Course Course Attending Physician: Sharonda Mills MD Primary Care Physician: edwar HIGGINBOTHAM Hospital Course: 56 yo M with pmh of ischemic cardiomyopathy/dilated cardiomyopathy with EF 10-15 % (01/2017), with left ventricular thrombus, coronary artery disease proven by cardiac catheterization showing LAD 90% stenosis of 22 mm length, large anterior [place], pulmonary hypertension, left atrial dilatation, and seizure disorder, noncompliant with medications, who lives in [place], was at his friend's home the day [employer] when he sustained a witnessed seizure. Given his cardiac history and history of seizure disorder, difficult at this point of time to say his seizure was due to seizure disorder non compliance to meds or due to hypoxia secondary to his cardiac condition. Although his ejection fraction is extremely low, he did not appear to be in any decompensated heart failure as of now. Overnight, he did not have any changes in telemetry, did not have any further seizures, and had EEG test which was negative for any seizure-like activity, echocardiogram was pending, cardiology note pending. Neurology's suggested continuing Carbamazepine, and a level check in ten days from the day of admission, i.e. 07/07/17,a nd cardiology evaluation as well. Of note, he tried leaving AGAINST MEDICAL ADVICE, earlier during the day saying he needs to have a cigarette while refusing any substitute. HE LEFT AGAINST MEDICAL ADVICE AFTER THE NEUROLOGY CONSULTATION AND HIS MEDICATIONS WERE SENT TO [facility] PER HIS REQUEST. He was well explained about the risks of leaving against medical advice, including getting another seizure, cardiac arrhythmia (VT) and even . He understood the conditions and had the capacity to decide for himself, and left against medical advice. His medications had been reconciled from his [facility] pharmacy, [place]. Allergies: Coded Allergies: No Known Allergies (06/26/17) Significant Procedures: EEG report: Interpretation: The background reveals a posterior 9 Hz alpha mixed with low amplitude frontally dominant beta. Occasional muscle artifact is present but there are no focal, lateralized or epileptiform abnormalities. Hyperventilation was deferred due to a cardiac history, photic stimulaton was normal. Impression: Normal DICTATED BY: Tati SY,Rory Carias DATE/TIME DICTATED:06/27/171529 POULTRY DRESSER:SATNAM DATE/TIME TRANSCRIBED:06/27/17 / 1530 REPORT NUMBER:[id number] Disposition Summary Disposition Principal Diagnosis: Witnessed seizure episode, likely due to medication non-compliance; Cardiac causes could not be entirely ruled out. Additional Diagnosis: ischemic cardiomyopathy/dilated cardiomyopathy with EF 10-15% (01/2017), with left ventricular thrombus, coronary artery disease proven by cardiac catheterization showing LAD 90% stenosis of 22 mm length, h/o large anterior [place], pulmonary hypertension, left atrial dilatation, and seizure disorder Discharge Disposition: left against medical adv Discharge Instructions General Discharge Information Code Status: Full Code Patient's Diet: heart healthy diet Patient's Activity: as tolerated Follow-Up Instructions/Appts: You are leaving AGAINST MEDICAL ADVICE. Please follow-up with your diorama model maker and neurologist even after you leave the hospital. Please follow-up with your primary care physician after you leave the hospital. Please return to hospital for worsening of symptoms, or if you have another episode of seizure. Medications at Discharge Discharge Medications: Continue taking these medications: Valsartan (Valsartan) 80 MG TABLET 1 Tablet ORAL DAILY Qty = 30 Comments: NOT GIVEN IN HOSPITAL This prescription has been renewed Aspirin (Aspirin*) 81 MG TAB.CHEW 1 Tablet ORAL DAILY Qty = 30 Comments: Last Taken: 06/27/17 Time: 1045 AM This prescription has been renewed Carbamazepine (Tegretol XR) 200 MG TAB.ER.12H 1 Tablet ORAL TWICE DAILY Qty = 60 Comments: Last Taken: 06/27/17 Time: 1045 AM This prescription has been renewed Start taking the following new medications: Folic Acid (Folic Acid) 1 MG TABLET 1 Milligram ORAL DAILY Qty = 60 Refills = 1 Comments: Last Taken: 06/27/17 Time: 1045 AM Thiamine HCl (Vitamin B-1) 100 MG TABLET 100 Milligram ORAL DAILY Qty = 60 Refills = 1 Comments: Last Taken: 06/27/17 Time: 1045 AM Multivitamin (One Daily Multivitamin) 1 EACH TABLET 1 Tablet ORAL DAILY Qty = 60 Refills = 1 Comments: Last Taken: 06/27/17 Time: 1045 AM The following medications have been changed: Old: Warfarin Sodium (Coumadin) 2.5 MG TABLET 1 Tablet ORAL DAILY Qty = 30 New: Warfarin Sodium (Coumadin) 2.5 MG TABLET 1 Tablet ORAL DAILY Qty = 30 Comments: NOT GIVEN IN HOSPITAL Old: Carvedilol (Carvedilol) 3.125 MG TABLET 1 Tablet ORAL TWICE DAILY Qty = 60 New: Carvedilol (Carvedilol) 3.125 MG TABLET 1 Tablet ORAL TWICE DAILY Qty = 60 Comments: NOT GIVEN IN HOSPITAL Copies To: Tati SY,Rory Carias
== END 2017-06-27 19:03 | disposition left against medical advice (07) | DRG 53 ==
LOC: ERH 21:27 → ERHI 23:59
PROVIDERS: Pediatrics; Student in an Organized Health Care Education/Training Program
DX: G40.909 Epilepsy, unspecified, not intractable, without status epilepticus (principal); I50.22 Chronic systolic (congestive) heart failure; I25.2 Old myocardial infarction; Z91.14 Patient's other noncompliance with medication regimen; F17.200 Nicotine dependence, unspecified, uncomplicated; R94.31 Abnormal electrocardiogram [ECG] [EKG]; I25.10 Atherosclerotic heart disease of native coronary artery without angina pectoris; J43.9 Emphysema, unspecified; Z53.21 Procedure and treatment not carried out due to patient leaving prior to being seen by health care provider
CPT/HCPCS: ERO; 71045; 80307; 81001; 93005; 93010; 95816; 99291; G0480; J0131; J1650; J3490